=== PATIENT | female | born 1940 | race Caucasian/White ===

== ENCOUNTER 2021-12-29 10:22 | Inpatient (IN) | payer OTHER, MEDICAID ==
[~2021-12-29] VITALS: Ht 149.9 cm; Wt 44.9 kg
[2021-12-29 10:31] VITALS: BP_SYST 131
--- NOTE | 2021-12-29 10:40 | NUR ---
RECEIVED PT FROM SAMANTHA VASQUEZ. PT BIBS FOR AN EPISODE OF [facility]. PT IS AAOX4. FELIPE H/A AND DIZZINESS. NORMAL S1S2 NOTED. RESP E/U. ON R/A. DENIES N/V/D/C. SKIN WARM, INTACT, NO EDEMA. DENIES PAIN. SIDERAILS UP X2. URINE OBTAINED BY TRIAGE NURSE AND TAKEN TO LAB.
--- NOTE | 2021-12-29 11:00 | NUR ---
DR. MOSCOSO AT BEDSIDE TO ASSESS PT.
--- NOTE | 2021-12-29 11:05 | NUR ---
LABS OBTAINED. PT TAKEN FOR CT SCAN.
--- NOTE | 2021-12-29 11:10 | NUR ---
# 20 gauge angiocath placed to LAC. Use of asceptic technique. Opsite placed over site. Blood return noted. Flushed with 10 cc of normal saline. No evidence of infiltration noted. Patient tolerated well.
[2021-12-29 11:56] LABS: BASOPHILS % (AUTO) 0.5 % (0.0-2.0); EOSINOPHILS # (AUTO) 0.2 K/uL (0.0-0.4); EOSINOPHILS % (AUTO) 3.5 % (0.0-4.0); HEMATOCRIT 38.2 % (36-48); HEMOGLOBIN 13.3 g/dL (12.0-16.0); LYMPHOCYTES # (AUTO) 1.5 K/uL (1.0-5.5); LYMPHOCYTES % (AUTO) 24.5 % (20.5-51.5); MEAN CORPUSCULAR HEMOGLOBIN 31 pg (27-31); MEAN CORPUSCULAR HGB CONC 35 % (32-36); MEAN CORPUSCULAR VOLUME 87 fL (79.0-98.0); MONOCYTES # (AUTO) 0.7 K/uL (0.0-1.0); MONOCYTES % (AUTO) 11.2 % (1.7-9.3); NEUTROPHILS # (AUTO) 3.8 K/uL (1.8-7.7); NEUTROPHILS % (AUTO) 60.3 % (40.0-70.0); PLATELET COUNT (AUTO) 178 K/uL (130-430); RED BLOOD CELL COUNT(AUTO) 4.37 MIL/uL (4.2-6.2); RED CELL DISTRIBUTION WIDTH 13.7 % (9.0-15.0); WHITE BLOOD COUNT (AUTO) 6.3 K/uL (4.8-10.8)
[2021-12-29 12:20] LABS: BILIRUBIN,URINE NEGATIVE (NEGATIVE); CLARITY/URINE CLEAR (CLEAR); COLOR,URINE YELLOW (YELLOW); GLUCOSE,URINE NEGATIVE (NEGATIVE); KETONES,URINE NEGATIVE (NEGATIVE); LEUKOCYTE ESTERASE ,URINE TRACE (NEGATIVE); NITRITE, URINE NEGATIVE (NEGATIVE); PH,URINE 6.5 (5.0-8.0); PROTEIN URINE NEGATIVE (NEGATIVE); UROBILINOGEN,URINE 0.2 (0.2-1.0)
[2021-12-29 12:24] LABS: BLOOD, URINE TRACE (NEGATIVE)
[2021-12-29 12:35] LABS: BARBITURATE, URINE NEGATIVE (NEG <=200); BENZODIAZEPINE, URINE NEGATIVE (NEG <=150); CANNABINOID, URINE NEGATIVE (NEG <=50); COCAINE, URINE NEGATIVE (NEG <=150); METHAMPHETAMINES SCREEN,URINE NEGATIVE (NEG <=500); OPIATE, URINE NEGATIVE (NEG <=100); PHENCYCLIDINE SCREEN,URINE NEGATIVE (NEG <=25); UR TRICYCLIC ANTIDEPRESSANTS NEGATIVE (NEG <=300); URINE AMPHETAMINE NEGATIVE (NEG <=500); URINE METHADONE NEGATIVE (NEG <=200); URINE OXYCODONE SCREEN NEGATIVE (NEG <=100); URINE PROPOXYPHENE SCREEN NEGATIVE (NEG <=300)
--- NOTE | 2021-12-29 12:35 | NUR ---
PT BACK FROM CT SCAN AND PLACED ON MONITOR.
[2021-12-29 12:40] LABS: BACTERIA,URINE FEW /HPF (None Seen); MUCUS,URINE 1+ /LPF (None Seen); RBC,URINE 0-3 /HPF (0-3); WBC,URINE 0-3 /HPF (0-3)
[2021-12-29 13:03] LABS: PROTHROMBIN TIME 9.7 SECS (9.5-12.5)
[2021-12-29 13:47] LABS: ANION GAP 8 (5-15); CALCIUM 9.2 mg/dL (8.4-11.0); CHLORIDE 105 mmol/L (98-107); GLUCOSE 85 mg/dL (70-99); UREA NITROGEN, BLOOD 26 mg/dL (8-21)
[2021-12-29 13:48] LABS: ALANINE AMINOTRANSFERASE 20 U/L (12-78); ALBUMIN 3.4 g/dL (3.4-4.8); ASPARTATE AMINOTRANSFERASE 24 U/L (10-37); TOTAL BILIRUBIN 0.3 mg/dL (0.0-1.0)
[2021-12-29 13:49] LABS: ACETAMINOPHEN 1 ug/mL (1-30); ALCOHOL, BLOOD < 3 mg/dL (<10)
[2021-12-29] MEDS ORDERED: IBUP-1969 PO ×2 (13:58)
--- NOTE | 2021-12-29 14:55 | NUR ---
INFORMED CONSENT SIGNED FOR CT WITH CONTRAST, PT TAKEN BY W/C.
--- NOTE | 2021-12-29 15:20 | NUR ---
PT BACK FROM CT SCAN AND PLACED ON MONITOR.
[2021-12-29] MEDS ORDERED: MORPHINE 4 MG INJ. 4 MG/ML VIAL IVP ONE (16:30)
--- NOTE | 2021-12-29 16:34 | NUR ---
DR. HOWARD AT BEDSIDE TO DISCUSS POC. PT TO ADMIT DUE TO RIB FXS. PT WILL BE MONITORED X1 DAY AND TREATED FOR PAIN SO NOT TO DEVELOP PNEUMONIA.
[2021-12-29] MEDS ORDERED: MORPHINE 2 MG/ML INJ. SYRINGE IVP PRN ×2 (17:00)
[2021-12-29] MEDS ORDERED: cefTRIAXone 1 GM in D5W 50 ML IV SCH (17:00)
[2021-12-29] MEDS ORDERED: POTASSIUM CHLORIDE 20 MEQ TAB.PRT.SR PO PRN (17:00)
[2021-12-29] MEDS ORDERED: LORazepam 2 MG/ML VIAL IVP PRN (17:00)
[2021-12-29] MEDS ORDERED: DOCUSATE SODIUM 100 MG CAPSULE PO PRN (17:00)
[2021-12-29] MEDS ORDERED: ACETAMINOPHEN 325 MG TABLET PO PRN (17:00)
[2021-12-29] MEDS ORDERED: ZOLPIDEM TARTRATE 5 MG TABLET PO PRN (17:00)
[2021-12-29] MEDS ORDERED: ONDANSETRON HCL 4 MG/2 ML VIAL IVP PRN (17:00)
[2021-12-29] MEDS ORDERED: MUPIROCIN 2% TOPICAL OINTMENT 22 GM NS PRN (17:00)
[2021-12-29] MEDS ORDERED: NACL 0.9% 1,000 ML IV ONE (17:00)
[2021-12-29] MEDS ORDERED: MAGNESIUM SULFATE 50 ML IV PRN (17:00)
[2021-12-29] MEDS ORDERED: IPRATROPIUM/ALBUTEROL SULFATE 3 ML AMPUL.NEB (DUONEB) INH PRN (17:00)
[2021-12-29] MEDS ORDERED: LISI20TA30 PO (17:01)
[2021-12-29] MEDS ORDERED: AMLO5TAB4 PO (17:02)
--- NOTE | 2021-12-29 17:04 | NUR ---
MED REC, BELONGINGS, COVID OBTAINED.
--- NOTE | 2021-12-29 18:26 | NUR ---
MORPHINE 4MG IVP GIVEN FOR CHEST/RIB PAIN 08/17.
--- NOTE | 2021-12-29 19:30 | NUR ---
ENDORSED ALL CARE TO SAMANTHA ANGEL. ALL QUESTIONS AND CONCERNS ADDRESSED.
[2021-12-29] MEDS ORDERED: HEPARIN SODIUM,PORCINE 5,000 UNITS/ML VIAL SUBCUT SCH (21:00)
--- NOTE | 2021-12-29 22:47 | NUR ---
PT RESTING. VSS. NO ACUTE DISTRESS NOTED. DAUGHTER AT BEDSIDE
[2021-12-29] MEDS ORDERED: cefTRIAXone 1 GM VIAL ONE (23:01)
--- NOTE | 2021-12-29 23:37 | NUR ---
Admit bed requested Patient will be admitted to care of . Admitted to [facility] unit. Diagnosis [facility] Inpatient (Yes or No) N Observation (Yes or No) Y Orientation concerns or request close to nursing station (Yes or No) N Covid Status NEG On vent or bipap N Isolation requirements N Needs a sitter N From Home (Yes or if No enter name of facility) Y Requires Dialysis (Yes or No) N Med Rec Completed (Yes of No) Y
--- NOTE | 2021-12-30 01:22 | NUR ---
Patient resting quietly. No acute distress noted. Vital signs within normal range.
--- NOTE | 2021-12-30 03:25 | NUR ---
Patient resting quietly. No acute distress noted. Vital signs within normal range.
--- NOTE | 2021-12-30 06:26 | NUR ---
Patient resting quietly. No acute distress noted. Vital signs within normal range.
--- NOTE | 2021-12-30 07:25 | NUR ---
RECEIEVED REPORT FROM PHILIP RN, PT STABLE. NO SOB OR DISTRESS. VSS
[2021-12-30] MEDS ORDERED: LEVO-62 PO (07:26)
[2021-12-30] MEDS ORDERED: TRAM50TA2 PO (07:26)
--- NOTE | 2021-12-30 07:37 | NUR ---
RT NOTES PT WALKED BACK FROM RESTROOM ACCOMMODATED BY FAMILY MEMBER, OFF MONITOR AT THIS TIME. DOES NOT PRESENT ANY RESPIRATORY DISTRESS. PT/FAMILY REQUESTED AN INCENTIVE SPIROMETER. GIVEN AND EDUCATED PT AND FAMILY ON HOW TO USE IT. WILL CONTINUE MONITORING.
--- NOTE | 2021-12-30 07:52 | NUR ---
PT TALKED TO MD DR WILKES, AND DOES NOT WANT TO BE ADMITTED TO THE HOSPITAL. PT AND DAUGHTER AT BEDSIDE UNSTOOD THE RISK OF GOING AMA, AND HAS DECIDED TO TAKE PT HOME DUE TO FEAR OF [facility] AN ILLNESS AT HOSPITAL. PT SIGNED AMA AND WILL BE DISCHARGED HOME.
[2021-12-30 07:55] VITALS: BP_SYST 115
--- NOTE | 2021-12-30 07:55 | NUR ---
Patient given written and verbal discharge instructions and verbalizes understanding. ER MD DR WILKES discussed with patient the results and treatment provided. Patient in stable condition. ID arm band removed. IV catheter removed intact and dressing applied, no active bleeding. Patient educated on pain management and to follow up with PMD. Pain Scale 2/10. Opportunity for questions provided and answered. Medication side effect fact sheet provided.
[2021-12-30 08:07] LABS: ANION GAP 7 (5-15); CALCIUM 8.8 mg/dL (8.4-11.0); CHLORIDE 108 mmol/L (98-107); CREATININE 0.95 mg/dL (0.55-1.30); GLUCOSE 130 mg/dL (70-99); UREA NITROGEN, BLOOD 20 mg/dL (8-21)
[2021-12-30 08:10] LABS: BASOPHILS % (AUTO) 0.6 % (0.0-2.0); EOSINOPHILS # (AUTO) 0.3 K/uL (0.0-0.4); EOSINOPHILS % (AUTO) 4.3 % (0.0-4.0); HEMATOCRIT 38.2 % (36-48); HEMOGLOBIN 12.5 g/dL (12.0-16.0); LYMPHOCYTES # (AUTO) 1.5 K/uL (1.0-5.5); MEAN CORPUSCULAR HEMOGLOBIN 29 pg (27-31); MEAN CORPUSCULAR HGB CONC 33 % (32-36); MEAN CORPUSCULAR VOLUME 89 fL (79.0-98.0); MONOCYTES # (AUTO) 0.7 K/uL (0.0-1.0); MONOCYTES % (AUTO) 10.1 % (1.7-9.3); NEUTROPHILS # (AUTO) 4.2 K/uL (1.8-7.7); PLATELET COUNT (AUTO) 196 K/uL (130-430); RED CELL DISTRIBUTION WIDTH 13.8 % (9.0-15.0); WHITE BLOOD COUNT (AUTO) 6.7 K/uL (4.8-10.8)
[2021-12-30] MEDS ORDERED: cefTRIAXone 1 GM in D5W 50 ML IV SCH (21:00)
== END 2021-12-30 07:55 | disposition left against medical advice (07) | DRG 184 ==
LOC: SED 10:22 → SMU 17:03
PROVIDERS: ADMIT General Practice; ATTEND General Practice
DX: S22.41XA Multiple fractures of ribs, right side, initial encounter for closed fracture (principal); N39.0 Urinary tract infection, site not specified; I10 Essential (primary) hypertension; Z20.822 Contact with and (suspected) exposure to COVID-19; E86.0 Dehydration; W18.2XXA Fall in (into) shower or empty bathtub, initial encounter; Y93.E1 Activity, personal bathing and showering; Y92.091 Bathroom in other non-institutional residence as the place of occurrence of the external cause; Y99.8 Other external cause status
CPT/HCPCS: 36415; 70450-TC; 71045; 71260-TC; 76376; 80048; 80053; 80307; 81000; 83036; 83605; 83735; 84484; 85025; 85610-TC; 85730-TC; 87040; 87086; 93005; 99291; 99292; G0480; G0481; G0482; J0696; J1644; J2270; J7060; Q9967